=== PATIENT | male | born 1970 | race Caucasian/White ===

== ENCOUNTER 2016-11-29 01:34 | Emergency (ER) | payer MEDICAID ==
[2016-11-29 03:31] LABS: CARBON DIOXIDE 31.3 mmol/L (21-32); CHLORIDE SERUM 107 mmol/L (98-107); CREATININE SERUM 0.9 mg/dL (0.7-1.3); GFR1 > 60 mL/min; GLUCOSE SERUM 104 mg/dL (74-106); POTASSIUM SERUM 3.3 mmol/L (3.5-5.1); SODIUM SERUM 145 mmol/L (136-145)
[2016-11-29 03:35] LABS: ALBUMIN 3.5 g/dL (3.4-5.0); ALKALINE PHOSPHATASE 67 U/L (46-116); ALT/SGPT 31 U/L (16-63); AST/SGOT 20 U/L (15-37); BILIRUBIN TOTAL 0.54 mg/dL (0.20-1.00); LIPASE 222 IU/L (73-393); TOTAL PROTEIN, SERUM 6.3 g/dL (6.4-8.2)
[2016-11-29 03:39] LABS: BASOPHIL % 0.4 % (0-2); PLATELET COUNT 153 x10^3mcL (130-400); RED CELL DISTRIBUTION WIDTH 13.1 % (11.5-14.5)
[2016-11-29 04:41] VITALS: BP 138/83
== END 2016-11-29 04:41 | disposition home or self-care (01) ==
LOC: ED 01:34
PROVIDERS: Emergency Medicine
DX: R10.30 Lower abdominal pain, unspecified (principal); Z98.890 Other specified postprocedural states
CPT/HCPCS: J2270; J2405; J7030

== ENCOUNTER 2016-12-13 08:07 | Emergency (ER) | payer MEDICAID ==
[~2016-12-13] VITALS: Ht 175.3 cm; Wt 93.2 kg
[2016-12-13 09:37] VITALS: BP 119/92
== END 2016-12-13 09:37 | disposition home or self-care (01) ==
LOC: ED 08:07
DX: K62.89 Other specified diseases of anus and rectum (principal); K62.5 Hemorrhage of anus and rectum; J45.909 Unspecified asthma, uncomplicated; I10 Essential (primary) hypertension; R18.8 Other ascites; Z79.899 Other long term (current) drug therapy; Z87.19 Personal history of other diseases of the digestive system; Z88.6 Allergy status to analgesic agent

== ENCOUNTER 2017-07-01 22:04 | Inpatient (IN) | payer MEDICAID ==
[~2017-07-01] VITALS: Ht 175.3 cm; Wt 98.4 kg
[2017-07-01 23:33] LABS: BASOPHIL % 0.3 % (0-2); PLATELET COUNT 153 x10^3mcL (130-400); RED CELL DISTRIBUTION WIDTH 13.3 % (11.5-14.5)
[2017-07-01 23:38] LABS: CALCIUM 8.7 mg/dL (8.5-10.1); CHLORIDE SERUM 105 mmol/L (98-107); GFR1 > 60 mL/min; GLUCOSE SERUM 126 mg/dL (74-106); POTASSIUM SERUM 3.5 mmol/L (3.5-5.1); SODIUM SERUM 140 mmol/L (136-145)
[2017-07-01 23:42] LABS: ALKALINE PHOSPHATASE 61 U/L (46-116); ALT/SGPT 45 U/L (16-63); AST/SGOT 24 U/L (15-37); BILIRUBIN TOTAL 0.29 mg/dL (0.20-1.00)
[2017-07-01 23:48] LABS: ALBUMIN 3.1 g/dL (3.4-5.0); TOTAL PROTEIN, SERUM 5.8 g/dL (6.4-8.2)
[2017-07-02] MEDS ORDERED: MECLIZINE HYDRO25 M1 PO (01:45)
[2017-07-02] MEDS ORDERED: AMITRIPTYLINE H10 MG PO (01:46)
[2017-07-02] MEDS ORDERED: SINEMET 25-1001 TAB PO (01:52)
[2017-07-02] MEDS ORDERED: BACLOFEN20 MG PO (01:54)
[2017-07-02] MEDS ORDERED: HYDROCHLOROTHIA25 MG PO ×3 (01:55→02:32)
[2017-07-02] MEDS ORDERED: BENAZEPRIL HYDR20 M1 PO ×2 (01:58→02:31)
[2017-07-02 02:23] VITALS: BP 124/77
[2017-07-02] MEDS ORDERED: BACLOFEN10 MG PO (02:29)
[2017-07-02] MEDS ORDERED: AMITRIPTYLINE H25 MG PO (02:30)
[2017-07-02] MEDS ORDERED: ZOCOR20 MG PO (02:31)
[2017-07-02 02:37] LABS: CHOLESTEROL/HDL RATIO 3.9; MAGNESIUM 2.3 mg/dL (1.8-2.4); PHOSPHOROUS 4.7 mg/dL (2.5-4.9)
[2017-07-02 02:42] LABS: T3 TOTAL 1.45 ng/mL
[2017-07-02 02:45] LABS: FREE T4 1.26 ng/dL (0.76-1.46); T4(THYROXINE) 6.3 ug/dL (4.7-13.3)
[2017-07-02 04:02] LABS: microscopic required? NO
[2017-07-02 04:12] LABS: UA SPECIFIC GRAVITY 1.025 (1.005-1.035); urine erythrocyte NEGATIVE (NEGATIVE)
[2017-07-02 04:21] LABS: AMPHETAMINE QUAL UR NONE DETECTED (NEG <=1000)
[2017-07-02 05:52] VITALS: BP 103/65
[2017-07-02 07:41] LABS: BASOPHIL % 0.5 % (0-2); PLATELET COUNT 134 x10^3mcL (130-400); RED CELL DISTRIBUTION WIDTH 13.2 % (11.5-14.5)
[2017-07-02 08:09] LABS: CALCIUM 8.5 mg/dL (8.5-10.1); CHLORIDE SERUM 108 mmol/L (98-107); GFR1 > 60 mL/min; GLUCOSE SERUM 98 mg/dL (74-106); MAGNESIUM 2.2 mg/dL (1.8-2.4); PHOSPHOROUS 4.2 mg/dL (2.5-4.9); POTASSIUM SERUM 4.3 mmol/L (3.5-5.1); SODIUM SERUM 144 mmol/L (136-145)
[2017-07-02 08:48] VITALS: BP 122/80
[2017-07-02 14:00] VITALS: BP 99/59
[2017-07-02 18:10] VITALS: BP 121/84
[2017-07-02 21:04] VITALS: BP 136/81
[2017-07-03 04:59] VITALS: BP 100/79
[2017-07-03 07:01] LABS: BASOPHIL % 0.4 % (0-2); PLATELET COUNT 135 x10^3mcL (130-400); RED CELL DISTRIBUTION WIDTH 13.1 % (11.5-14.5)
[2017-07-03 07:10] LABS: CALCIUM 8.7 mg/dL (8.5-10.1); CARBON DIOXIDE 34.4 mmol/L (21-32); CHLORIDE SERUM 107 mmol/L (98-107); GFR1 > 60 mL/min; GLUCOSE SERUM 88 mg/dL (74-106); POTASSIUM SERUM 4.1 mmol/L (3.5-5.1); SODIUM SERUM 145 mmol/L (136-145)
[2017-07-03 09:24] VITALS: BP 100/79
[2017-07-03 09:33] VITALS: BP 119/76
[2017-07-03] MEDS ORDERED: GOOD SENSE ASPI81 M3 PO (10:38)
== END 2017-07-03 11:45 | disposition home or self-care (01) | DRG 203 ==
LOC: ED 22:04 → DU 07-02 01:25
PROVIDERS: Emergency Medicine; ADMIT Family Medicine
DX: M94.0 Chondrocostal junction syndrome [Tietze] (principal); E44.0 Moderate protein-calorie malnutrition; I10 Essential (primary) hypertension; F32.9 Major depressive disorder, single episode, unspecified; F12.10 Cannabis abuse, uncomplicated; E66.9 Obesity, unspecified; M51.37 Other intervertebral disc degeneration, lumbosacral region; M51.17 Intervertebral disc disorders with radiculopathy, lumbosacral region; E78.5 Hyperlipidemia, unspecified; Z68.32 Body mass index [BMI] 32.0-32.9, adult
CPT/HCPCS: 83880; 84439; J1885; J2270; J2405; J7030; J8597

== ENCOUNTER 2017-08-14 00:05 | Emergency (ER) | payer MEDICAID ==
[~2017-08-14 00:05] MED LIST: AMITRIPTYLINE H10 MG PO; AMITRIPTYLINE H25 MG PO; BACLOFEN10 MG PO; BACLOFEN20 MG PO; BENAZEPRIL HYDR20 M1 PO; GOOD SENSE ASPI81 M3 PO; HYDROCHLOROTHIA25 MG PO; MECLIZINE HYDRO25 M1 PO; SINEMET 25-1001 TAB PO; ZOCOR20 MG PO
[2017-08-14 04:09] VITALS: BP 140/98
== END 2017-08-14 04:00 | disposition home or self-care (01) ==
LOC: ED 00:05
DX: B34.9 Viral infection, unspecified (principal); J45.909 Unspecified asthma, uncomplicated; I10 Essential (primary) hypertension; F32.9 Major depressive disorder, single episode, unspecified; Z88.6 Allergy status to analgesic agent; Z88.5 Allergy status to narcotic agent
CPT/HCPCS: 87804; J1885; Q0092; Q0162

== ENCOUNTER 2017-11-08 05:50 | Inpatient (IN) | payer MEDICAID ==
[~2017-11-08] VITALS: Ht 175.3 cm; Wt 96.8 kg
[2017-11-08 06:34] LABS: BASOPHIL % 0.6 % (0-2); PLATELET COUNT 179 x10^3mcL (130-400); RED CELL DISTRIBUTION WIDTH 12.6 % (11.5-14.5)
[2017-11-08] MEDS ORDERED: BENAZEPRIL HYDR20 M1 PO (07:07)
[2017-11-08] MEDS ORDERED: MECLIZINE HYDRO25 M1 PO (07:07)
[2017-11-08] MEDS ORDERED: BACLOFEN10 MG PO (07:08)
[2017-11-08] MEDS ORDERED: AMITRIPTYLINE H25 MG PO (07:09)
[2017-11-08] MEDS ORDERED: HYDRALAZINE HCL25 MG PO (07:09)
[2017-11-08] MEDS ORDERED: SIMVASTATIN20 M1 PO (07:11)
[2017-11-08] MEDS ORDERED: NEU300 PO (07:12)
[2017-11-08 07:28] LABS: ALBUMIN 3.7 g/dL (3.4-5.0); ALKALINE PHOSPHATASE 78 U/L (46-116); ALT/SGPT 31 U/L (16-63); AST/SGOT 19 U/L (15-37); BILIRUBIN TOTAL 0.4 mg/dL (0.20-1.00); CALCIUM 8.3 mg/dL (8.5-10.1); CARBON DIOXIDE 30.3 mmol/L (21-32); CREATININE SERUM 0.9 mg/dL (0.7-1.3); GFR1 > 60 mL/min; GLUCOSE SERUM 109 mg/dL (74-106); TOTAL PROTEIN, SERUM 6.6 g/dL (6.4-8.2)
[2017-11-08 08:00] LABS: CHLORIDE SERUM 103 mmol/L (98-107); POTASSIUM SERUM 3.3 mmol/L (3.5-5.1); SODIUM SERUM 138 mmol/L (136-145)
[2017-11-08 08:09] LABS: microscopic required? NO
[2017-11-08 08:21] LABS: urine erythrocyte NEGATIVE (NEGATIVE)
[2017-11-08 08:31] LABS: AMPHETAMINE QUAL UR NONE DETECTED (NEG <=1000)
[2017-11-08 08:37] VITALS: BP 110/79
[2017-11-08 09:41] LABS: CHOLESTEROL/HDL RATIO 3.2; MAGNESIUM 2.2 mg/dL (1.8-2.4); PHOSPHOROUS 2.8 mg/dL (2.5-4.9); T3 TOTAL 1.19 ng/mL
[2017-11-08 09:46] LABS: FREE T4 1.43 ng/dL (0.76-1.46); FREE THYROXINE INDEX 1.8 ug/dL (1.4-4.5); T4(THYROXINE) 5.7 ug/dL (4.7-13.3)
[2017-11-08 13:13] VITALS: BP 118/77
[2017-11-08 17:11] VITALS: BP 136/84
[2017-11-09 05:56] VITALS: BP 115/58
[2017-11-09 06:13] LABS: PLATELET COUNT 192 x10^3mcL (130-400); RED CELL DISTRIBUTION WIDTH 13.2 % (11.5-14.5)
[2017-11-09 06:47] LABS: CALCIUM 8.8 mg/dL (8.5-10.1); CARBON DIOXIDE 27.6 mmol/L (21-32); CHLORIDE SERUM 103 mmol/L (98-107); CREATININE SERUM 0.8 mg/dL (0.7-1.3); GFR1 > 60 mL/min; GLUCOSE SERUM 125 mg/dL (74-106); MAGNESIUM 2.3 mg/dL (1.8-2.4); PHOSPHOROUS 2.9 mg/dL (2.5-4.9); POTASSIUM SERUM 4.2 mmol/L (3.5-5.1); SODIUM SERUM 138 mmol/L (136-145)
[2017-11-09 06:54] LABS: BASOPHIL % 0 % (0-2)
[2017-11-09 09:41] VITALS: BP 135/72
[2017-11-09 09:56] VITALS: Ht 175.3 cm; Wt 96.8 kg
[2017-11-09 12:28] LABS: PLATELET COUNT 200 x10^3mcL (130-400)
[2017-11-09 12:52] LABS: BAND NEUTROPHIL 0 % (0-10); BASOPHIL 0 % (0-2); MONOCYTE 6 % (0-7); SEGMENTED NEUTROPHILS 82 % (37-75)
== END 2017-11-09 14:28 | disposition left against medical advice (07) | DRG 243 ==
LOC: ED 05:50 → DU 06:57
PROVIDERS: Emergency Medicine; Family Medicine; Family Medicine Sports Medicine
DX: K21.9 Gastro-esophageal reflux disease without esophagitis (principal); K76.0 Fatty (change of) liver, not elsewhere classified; I10 Essential (primary) hypertension; M94.0 Chondrocostal junction syndrome [Tietze]; D72.829 Elevated white blood cell count, unspecified; E87.6 Hypokalemia; M54.9 Dorsalgia, unspecified; G89.29 Other chronic pain; E78.5 Hyperlipidemia, unspecified; F12.10 Cannabis abuse, uncomplicated; E66.3 Overweight; Z68.31 Body mass index [BMI] 31.0-31.9, adult; Z87.891 Personal history of nicotine dependence; Z79.82 Long term (current) use of aspirin
CPT/HCPCS: 83880; 84439; J1100; J3010; J7030; J8597; Q0092

== ENCOUNTER 2017-11-27 06:00 | Emergency (ER) | payer OTHER ==
[~2017-11-27] VITALS: Ht 175.3 cm; Wt 97.1 kg
[~2017-11-27 06:00] MED LIST changes: +HYDRALAZINE HCL25 MG PO; +NEU300 PO; +SIMVASTATIN20 M1 PO
[2017-11-27 07:34] VITALS: BP 140/87
== END 2017-11-27 07:34 | disposition home or self-care (01) ==
LOC: ED 06:00
DX: S39.012A Strain of muscle, fascia and tendon of lower back, initial encounter (principal); I10 Essential (primary) hypertension; J45.909 Unspecified asthma, uncomplicated; Z88.6 Allergy status to analgesic agent; Z88.5 Allergy status to narcotic agent; X58.XXXA Exposure to other specified factors, initial encounter; Y93.89 Activity, other specified; Y92.89 Other specified places as the place of occurrence of the external cause; Y99.8 Other external cause status
CPT/HCPCS: J3010

== ENCOUNTER 2017-12-17 07:58 | Emergency (ER) | payer OTHER ==
[~2017-12-17] VITALS: Ht 175.3 cm; Wt 98.9 kg
[2017-12-17 08:04] VITALS: Ht 175.3 cm; Wt 98.9 kg
[2017-12-17 08:58] VITALS: BP 124/81
== END 2017-12-17 08:58 | disposition home or self-care (01) ==
LOC: ED 07:58
DX: G89.29 Other chronic pain (principal); M54.5 Low back pain; J45.909 Unspecified asthma, uncomplicated; I10 Essential (primary) hypertension; Z88.5 Allergy status to narcotic agent; Z88.8 Allergy status to other drugs, medicaments and biological substances
CPT/HCPCS: J2270; Q0162

== ENCOUNTER 2018-01-26 22:39 | Emergency (ER) | payer OTHER ==
[~2018-01-26] VITALS: Ht 175.3 cm; Wt 99.3 kg
[2018-01-26 22:45] VITALS: Ht 175.3 cm; Wt 99.3 kg
[2018-01-26 23:43] VITALS: BP 138/86
== END 2018-01-26 23:43 | disposition home or self-care (01) ==
LOC: ED 22:39
DX: S16.1XXA Strain of muscle, fascia and tendon at neck level, initial encounter (principal); J45.909 Unspecified asthma, uncomplicated; I10 Essential (primary) hypertension; Z88.5 Allergy status to narcotic agent; Z88.6 Allergy status to analgesic agent; X58.XXXA Exposure to other specified factors, initial encounter; Y93.89 Activity, other specified; Y92.89 Other specified places as the place of occurrence of the external cause; Y99.8 Other external cause status

== ENCOUNTER 2018-03-25 09:14 | Emergency (ER) | payer OTHER ==
[~2018-03-25] VITALS: Ht 175.3 cm; Wt 96.6 kg
[2018-03-25 09:28] VITALS: Ht 175.3 cm; Wt 96.6 kg
[2018-03-25 10:42] VITALS: BP 134/95
== END 2018-03-25 10:45 | disposition home or self-care (01) ==
LOC: ED 09:14
DX: G89.29 Other chronic pain (principal); M54.2 Cervicalgia; M54.9 Dorsalgia, unspecified; J45.909 Unspecified asthma, uncomplicated; I10 Essential (primary) hypertension; Z88.6 Allergy status to analgesic agent; Z88.5 Allergy status to narcotic agent
CPT/HCPCS: J2270; Q0162

== ENCOUNTER 2018-07-19 02:07 | Emergency (ER) | payer MEDICAID ==
[~2018-07-19] VITALS: Ht 175.3 cm; Wt 97.1 kg
[2018-07-19 02:12] VITALS: Ht 175.3 cm; Wt 97.1 kg
[2018-07-19 03:08] LABS: BASOPHIL % 1.8 % (0-2); PLATELET COUNT 226 x10^3mcL (130-400); RED CELL DISTRIBUTION WIDTH 12.1 % (11.5-14.5)
[2018-07-19 03:25] LABS: CARBON DIOXIDE 32.1 mmol/L (21-32); CHLORIDE SERUM 100 mmol/L (98-107); GFR1 > 60 mL/min; GLUCOSE SERUM 127 mg/dL (74-106); POTASSIUM SERUM 3.4 mmol/L (3.5-5.1); SODIUM SERUM 139 mmol/L (136-145)
[2018-07-19 03:30] LABS: ALKALINE PHOSPHATASE 77 U/L (46-116); ALT/SGPT 49 U/L (16-63); AST/SGOT 27 U/L (15-37); BILIRUBIN TOTAL 0.58 mg/dL (0.20-1.00); TOTAL PROTEIN, SERUM 7.8 g/dL (6.4-8.2)
[2018-07-19 05:42] VITALS: BP 122/80
== END 2018-07-19 05:42 | disposition home or self-care (01) ==
LOC: ED 02:07
PROVIDERS: Emergency Medicine
DX: G89.18 Other acute postprocedural pain (principal); J45.909 Unspecified asthma, uncomplicated; I10 Essential (primary) hypertension; F32.9 Major depressive disorder, single episode, unspecified; F41.9 Anxiety disorder, unspecified; Z88.1 Allergy status to other antibiotic agents; Z88.5 Allergy status to narcotic agent; Z88.6 Allergy status to analgesic agent
CPT/HCPCS: 83880; J2270; J2405; J7030; Q9967

== ENCOUNTER 2019-07-25 00:54 | Emergency (ER) | payer MEDICAID ==
[~2019-07-25] VITALS: Ht 175.3 cm; Wt 101.6 kg
[2019-07-25 01:00] VITALS: Ht 175.3 cm; Wt 101.6 kg
[2019-07-25 04:41] VITALS: BP 136/95
== END 2019-07-25 04:41 | disposition home or self-care (01) ==
LOC: ED 00:54
DX: L60.0 Ingrowing nail (principal); J45.909 Unspecified asthma, uncomplicated; I10 Essential (primary) hypertension; M54.2 Cervicalgia; Z98.890 Other specified postprocedural states; Z88.6 Allergy status to analgesic agent; Z88.8 Allergy status to other drugs, medicaments and biological substances; Z88.5 Allergy status to narcotic agent
CPT/HCPCS: J2001

== ENCOUNTER 2019-08-09 17:21 | Emergency (ER) | payer MEDICAID ==
[~2019-08-09] VITALS: Ht 172.7 cm; Wt 99.8 kg
[2019-08-09 17:37] VITALS: Ht 172.7 cm; Wt 99.8 kg
[2019-08-09 20:55] VITALS: BP 126/83
== END 2019-08-09 19:14 | disposition home or self-care (01) ==
LOC: ED 17:21
DX: L03.115 Cellulitis of right lower limb (principal); J45.909 Unspecified asthma, uncomplicated; I10 Essential (primary) hypertension; Z98.890 Other specified postprocedural states; Z88.6 Allergy status to analgesic agent; Z88.8 Allergy status to other drugs, medicaments and biological substances; Z88.5 Allergy status to narcotic agent